=== PATIENT | male | born 1980 | race African-American/Black ===

== ENCOUNTER 2019-01-02 08:50 | Emergency (ER) | payer SELFPAY ==
[2019-01-02 08:53] VITALS: BP 166/90; PULSE 84; RESP 18; TEMP 36.4; O2SAT 99; BMI 33.9
--- NOTE | 2019-01-02 09:06 | ED.VIS.GEN ---
History of Present Illness Chief Complaint: Headache Informant: Patient Onset: Days Narrative: Patient presents to the ED with concern for headache for the last several days. He is also been experiencing bilateral arm cramping and paresthesias over this last week. 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 He has been taking ibuprofen for this arm cramping, however became concerned with the paresthesias. Nothing makes it better or worse. It does wake him up in the middle the night. Denies any chest pain or shortness of breath. His headache is intermittent and feels like a throbbing sensation. He has taken ibuprofen and a nasal spray with some relief of the headache. He states 3 days ago, he did run out of his hypertensive medication. He has an appointment on January 11 to establish care with a new PCP. Past Medical History - Allergies and Home Meds Allergies/Adverse Reactions: Allergies No Known Allergies Allergy (Verified 01/02/19 08:52) Primary Care Physician: Care Physician,No Primary [Primary Care Provider] - Smoking Status: Never smoker Review of Systems General: Denies: Chills, Fever, Sweats Eyes: Denies: Visual changes - bilaterally, Diplopia ENT: Denies: Rhinorrhea, Sore throat Cardiovascular: Denies: Chest pain, Palpitations Respiratory: Denies: Dyspnea, Cough, Dyspnea on exertion Gastrointestinal: Denies: Abdominal pain, Nausea, Vomiting, Diarrhea, Melena, Hematochezia Genitourinary: Denies: Dysuria, Hematuria, Frequency Musculoskeletal: Reports: - - Arm pain. Denies: Back pain, Extremity Pain Skin: Denies: Rash, Wounds Neurological: Reports: Headache, Parasthesia. Denies: Weakness, Numbness Physical Exam Vital Signs/Narrative: Vital Signs Temp Pulse Resp BP Pulse Ox 01/02/19 08:53 97.5 F L 84 18 166/90 H 99 General: Well nourished, Well developed, No Acute Distress Head: Normocephalic, Atraumatic Eyes: Perrl, EOMI ENT: Moist mucous membranes, No rhinorrhea Neck: Supple, Nontender Cardiovascular: Regular rate, Regular rhythm, No murmurs Respiratory: No distress, CTA bilaterally, Chest nontender Abdomen: Soft, Nontender, Nondistended, Normal bowel sounds Back: Nontender, Normal Inspection Extremities: Nontender, No edema, - - No visible swelling of upper extremities. Full range of motion of upper and lower extremities. No erythema, edema, or ecchymosis of extremities. Normal strength of all extremities. Full sensation of all extremities. Skin: Normal color, No rash Neurological: Alert, Oriented x3, Cranial nerves II-XII grossly intact, Normal Strength, Normal Sensation, Normal DTR, Normal Gait, - - NIH 0 Psychological: Normal affect, Normal Mood Diagnostic/Tx/Re-eval - Medical Decision Making Patient presents to the ED with headache, upper extremity paresthesias, and feeling as though his upper extremities are cramping or swollen. Upon arrival, patient appears well and nontoxic. He did run out of his hydrochlorothiazide 3 days ago. Physical exam is fairly unremarkable. CBC and BMP are normal. Patient was educated on the potential etiology of his symptoms. I did refill his hydrochlorothiazide for the next 2 weeks as he does have a follow-up appointment with a new PCP on January 11. His symptoms could also be consistent with anxiety disorder. He was given a prescription for several Ativan tablets to take as needed. He was educated on signs/symptoms to return to the ED. He is provided discharge instructions. He was agreeable to plan. Disposition: Home stable Impression: Headache. Paresthesias. Potential anxiety. Hypertension. ED Disposition - Plan for ED Patient: Disposition: Psychiatric Hospital or Unit Diagnosis: Headache, Anxiety Instructions: HEADACHE, Unspecified, Paraesthesias Prescriptions: Lorazepam [Ativan] 1 mg PO DAILY PRN PRN #5 tab PRN Reason: Anxiety Prescription Printed Hydrochlorothiazide [Hctz] 25 mg PO DAILY #14 tab Prescription Printed Referrals: Care Physician,No Primary [Primary Care Provider] -
[2019-01-02 09:52] LABS: Absolute Lymphocyte Count 2.42 X10^3/ul (0.83-4.51); Absolute Neutrophil Count 3.9 X10^3/uL (2.0-7.7); Basophil# 0.02 X10^3/uL; Basophil% 0.3 % (0-1); Eosinophil# 0.15 X10^3/uL; Eosinophils% 2.2 % (0-5); Hematocrit 46.5 % (40-54); Hemoglobin 15.2 g/dl (13.0-16.5); Lymphocyte # 2.42 X10^3/ul (4.0); Mean Corp Hgb Conc 32.7 g/gl (32-36); Mean Corpuscular Hgb 27.2 pg (27.0-32.0); Mean Corpuscular Volume 83.2 fL (80-94); Mean Platelet Vol. 10.2 fl (6.2-12.0); Monocyte# 0.43 X10^3/uL; Monocyte% 6.2 % (0-10); Neutrophil # 3.89 X10^3/uL (2.7-7.7); Neutrophil % 56.2 % (47-70); Platelet Count 249 K/mm3 (150-450); RBC Distribution Width CV 14.5 % (11.6-14.6); RBC Distribution Width SD 44.5 fl (35.1-43.9); Red Blood Count 5.59 M/mm3 (4.6-6.2); White Blood Count 6.9 K/mm3 (4.4-11.0)
[2019-01-02 09:53] LABS: POSITIVE COUNT NO; POSITIVE DIFFERENTIAL NO; POSITIVE MORPHOLOGY NO
[2019-01-02 09:56] LABS: Anion Gap 3 (5-15); BUN 13 mg/dL (7-18); BUN/Creat Ratio 11.3 RATIO (10-20); Calcium,Total 9.1 mg/dL (8.5-10.1); Chloride 104 mmol/L (98-107); Creatinine, Serum 1.15 mg/dL (0.70-1.30); EST Glomerular Filtration Rate 75 mL/min (>60); Est Glom Filt Rate - Afr Amer 91 mL/min (>60); Estimated Creatinine Clearance 89.05 ml/min; Glucose 106 mg/dL (74-106); Potassium 3.8 mmol/L (3.5-5.1); Sodium Level 136 mmol/L (136-145)
--- NOTE | 2019-01-02 10:02 | ED.DCSUM_ITS ---
- ER Visit Summary Date of Service: 01/02/19 Chief Complaint: [Headache and pain and paresthesias to arms and legs] History of Present Illness: The patient is a 38 M [presents with symptoms that he has had for about a week. Patient states that he is been having headaches for about a week that come and go. Patient been using ibuprofen that seems to help resolve his symptoms. Patient states that especially at night he has been having pain radiating into both arms and paresthesias in both arms as well as his legs. Patient did start a new job 3 weeks ago. He does a lot of repetitive motions at work. Patient also states that he ran out of his blood pressure medicine 3 days ago and he believes he takes hydrochlorothiazide. She just wanted to get checked out make sure everything was okay. He does feel anxious at x1 symptoms are occurring.] Patient denies headache currently. Patient denies any nausea or vomiting associate with a headache or photophobia. Physical Examination: [HEENT-PERRLA, EOMI. Cranial nerves II through XII grossly intact. TMs clear. Mucous membranes moist. No adenopathy. Cardiovascular-regular rate and rhythm without murmur or ectopy Lungs-clear to auscultation, chest wall stable without crepitus or subcu emphysema Abdomen-normoactive bowel sounds, soft, nontender, no rebound or rigidity, no peritoneal signs. Neuro edzl-pfuyrf-ypku and heel fierro testing within normal limits, negative Romberg, negative for Extremities-intact ?4, normal range of motion, normal pulses, atraumatic] Test Results: [CBC with differential and basic metabolic panel were unremarkable.] Emergency Department Course and Treatment: [] Treatment Plan: [Patient will be given a prescription for naproxen and Ativan as needed. She has an appointment with his primary care physician next week. Patient to return if worsening headache, difficulty with balance or speech, weakness in extremities, or conditions worsen anyway.] Disposition: [Discharged home stable condition.] Impression: [Nephrology Hypertension Paresthesias Anxiety] This note was generated with [employer] software. It may contain incorrect words, spelling, and punctuation that were not noted in review of the chart prior to signing ED Disposition - Plan for ED Patient: Referrals: Care Physician,No Primary [Primary Care Provider] -
[2019-01-02 10:17] VITALS: BP 157/96; PULSE 80; RESP 16
== END 2019-01-02 10:19 ==
PROVIDERS: Emergency Medicine; Emergency Provider Physician Assistant
DX: R51 Headache (principal); I10 Essential (primary) hypertension; R20.2 Paresthesia of skin; F41.9 Anxiety disorder, unspecified
CPT/HCPCS: 80048; 85025; 99283; A4216

== ENCOUNTER 2021-01-13 08:11 | Emergency (ER) | payer SELFPAY ==
[2021-01-13 08:12] VITALS: BP 163/94; PULSE 77; RESP 16; TEMP 36.6; O2SAT 98; BMI 40.7
--- NOTE | 2021-01-13 08:29 | CT_ITS ---
HISTORY: headache. TECHNIQUE: Multiple axial images were obtained of the brain without intravenous contrast. A radiation dose optimization technique was used for this scan. # of images incl. paperwork: 248. COMPARISON: None. FINDINGS: BRAIN PARENCHYMA: No significant attenuation abnormality in the brain parenchyma. INTRACRANIAL HEMORRHAGE: No acute intracranial hemorrhage. CSF SPACES/MASS EFFECT: Cerebral ventricles, cortical sulci, and other extra-axial CSF spaces appropriate for age without significant midline shift or mass effect. ORBITS: Unremarkable. CALVARIUM: Intact. PARANASAL SINUSES/MASTOID AIR CELLS: Polypoid mucosal thickening in the maxillary and sphenoid sinuses. Fluid in the right mastoid air cells and middle ear cavity. CT/Brain/Head without Contrast IMPRESSION: No acute intracranial process identified. Paranasal sinus inflammatory disease. Right mastoid effusion or otomastoiditis. Individualized dose optimization techniques were used for this CT. at 0923 Reported and signed by: Karla Stark MD Electronically Signed: Karla Stark MD at 9:22 EDT Tel , Service support ,
[2021-01-13] MEDS: Ketorolac 30 MG/ML Syringe IM (08:49)
--- NOTE | 2021-01-13 09:47 | EX.ED.VIS.HA ---
HPI History of Present Illness Chief Complaint: Headache Narrative Narrative: Patient presenting for evaluation secondary to headache. Patient states that over the course the last 3 days he has been dealing with a generalized headache. Patient states that this came on somewhat rapidly but was not thunderclap severe. Patient states that he has been taking nusg-uqe-aahmecx remedies at home for this and has not been having any sort of relief. Patient states that it is mainly a frontal headache, not worse with position change and its not worse with exposure to light or sound. No fevers nausea or vomiting. No neck stiffness or skin rashes associated with this. Patient does not necessarily have a history of headaches. He denies any recent history of significant nasal congestion or sore throat or drainage. No cough. Review of systems otherwise negative. [facility] Medical History CPAP (continuous positive airway pressure) dependence GERD (gastroesophageal reflux disease) Hypertension Sleep apnea Home Medications amoxicillin-pot clavulanate [Augmentin] 1 tab PO Q12H #28 tab 01/13/21 [Rx Last Taken Unknown] hydrochlorothiazide 25 mg PO DAILY 01/13/21 [History Last Taken Unknown] hydrochlorothiazide 25 mg PO DAILY #30 tab 01/13/21 [Rx Last Taken Unknown] Allergy/AdvReac Type Severity Reaction Status Date / Time No Known Allergies Allergy Verified 01/13/21 08:28 Social History Smoking Status: Never smoker [facility] ED Constitutional Constitutional ED: Denies chills, fever(s), sweats or weight loss Eyes Eyes: Denies blurry vision, change in vision, diplopia or photophobia ENT ENT ED: Denies ear pain, neck pain, rhinorrhea or sore throat Cardiovascular Cardiovascular: Denies chest pain Respiratory/Chest Respiratory/Chest: Denies cough or dyspnea Gastrointestinal Gastrointestinal: Denies abdominal pain, nausea or vomiting Musculoskeletal Musculoskeletal: Denies arthralgias, myalgias or neck pain Integumentary Reports other Details: No petechia ; Denies rash Neurologic Neurologic: Reports headache(s); Denies paresthesias or weakness Psychiatric Psychiatric: Reports other Details: No history of IV drug abuse ; Denies depression Hematologic/Lymphatic Hematologic/Lymphatic: Denies easy bleeding or easy bruising Allergic/Immunologic Allergic/Immunologic ED: Reports other Details: No immunosuppression EXAM Physical Exam Const Vital Signs: 01/13/21 08:12 Temperature 97.8 F Temperature Source Temporal Pulse Rate 77 Respiratory Rate 16 Blood Pressure 163/94 H Blood Pressure Mean 117 Pulse Ox 98 Oxygen Delivery Method Room Air Positive well nourished and well developed General Appearance ED: well developed and NAD HEENT Reports normocephalic HEENT Narrative: No mastoid tenderness atraumatic; Negative for temporal artery tenderness or vesicular rash Face and Sinus: Negative for sinus tenderness Eyes PERRL and EOMs intact bilaterally Eyes Narrative: Funduscopy was limited by miosis Direct Ophthalmoscopy: No papilledema and No retinal abnormality Neck no lymphadenopathy, supple and no meningeal signs Resp normal respiratory effort and clear to auscultation bilaterally Cardio regular rate, regular rhythm, no murmurs and peripheral pulses 2+ throughout GI non-tender and non-distended Palpation: soft Extremity normal to inspection and full ROM Neuro oriented x3, CN's II-XII intact bilaterally and no sensory deficits noted Sensorium / Orientation: awake and alert Meningeal Signs: no meningeal signs Speech: speech normal Motor Exam: strength 5/5 throughout Psych mental status grossly normal Skin General Skin Exam: Negative for petechiae Lesions: no lesions Rashes: no rashes MDM MDM MDM Narrative Medical decision making narrative: Patient presenting secondary to a headache. I did perform CT imaging on the patient which was negative for intracranial process it does show sinus disease and a questionable presentation of mastoiditis I reevaluated the patient after Toradol was administered he had symptomatic improvement he does not have any mastoid tenderness I do not think that this is a presentation of mastoiditis. Patient likely has an element of sinusitis will be placed on a course of Augmentin he was recommended nasal rinses. Patient was discharged in stable condition. Radiography Diagnostic Testing: Radiology Impression Brain CT 01/13/21 08:29 IMPRESSION: No acute intracranial process identified. Paranasal sinus inflammatory disease. Right mastoid effusion or otomastoiditis. Individualized dose optimization techniques were used for this CT. at 0923 Reported and signed by: Karla Stark MD Electronically Signed: Karla Stark MD at 9:22 EDT Tel , Service support , Discharge Plan Triage Chief Complaint: Headache ED Provider: Roberto Godfrey Dx/Rx/DC Orders Clinical Impression: Sinusitis Instructions: ED Sinusitis (Antibiotic Treatment) Prescriptions: New amoxicillin-pot clavulanate [Augmentin] 875-125 mg tablet 1 tab PO Q12H Qty: 28 RF: 0 hydrochlorothiazide 25 mg tablet 25 mg PO DAILY Qty: 30 RF: 0 No Action hydrochlorothiazide 25 mg tablet 25 mg PO DAILY RF: 0 Primary Care Provider: Care Physician,No Primary Referrals: Care Physician,No Primary [Primary Care Provider] - Activity Restrictions/Additional Instructions: Follow-up with your primary care physician as scheduled Disposition Disposition: Home, Self Care
== END 2021-01-13 10:01 | disposition home or self-care (01) ==
PROVIDERS: Emergency Provider Emergency Medicine
DX: J32.9 Chronic sinusitis, unspecified (principal); Z79.899 Other long term (current) drug therapy
CPT/HCPCS: 70450; 96372; 99282

== ENCOUNTER 2021-01-20 10:29 | Emergency (ER) | payer SELFPAY ==
[2021-01-20 10:30] VITALS: BP 154/109; PULSE 91; RESP 14; TEMP 35.9; O2SAT 99; BMI 38.0
--- NOTE | 2021-01-20 10:48 | EX.ED.VIS.HA ---
HPI History of Present Illness Chief Complaint: Headache Informant: patient Onset/Context/Timing Onset: Yesterday Context: Gradual Timing: Continuous Quality -Headache: Positive for Throbbing Location: left frontal and retroorbital Current Severity: Moderate Maximum Severity: Moderate Worsened by: light Relieved by: nothing Associated Symptoms/Injury Associated Symptoms: Positive for Blurred Vision and Photophobia; Negative for Fever, Nausea, Vomiting, Sore Throat, Sinus Pressure, Numbness, Tingling, Preceding Aura and Visual Loss Injury - MICHAELS: Negative for Direct Trauma and Fall Narrative Narrative: Patient presents with a headache that started gradually yesterday and is worse today, he has some photophobia and blurry vision with it, left frontal with some retro-orbital component. He was here for a headache 1 week ago, headaches are unusual for him so he had a CT scan that showed some paranasal sinus inflammation and possible right mastoid involvement, for which he was prescribed Augmentin x7 days and given an injection of Toradol. He states the headache went away, and was gone until yesterday. He is describing this headache differently, with photophobia and blurry vision which he did not describe for the last headache. He has had no symptoms of a URI including nasal congestion, runny nose, fevers, ear symptoms. [facility] Medical History CPAP (continuous positive airway pressure) dependence GERD (gastroesophageal reflux disease) Hypertension Sleep apnea Home Medications amoxicillin-pot clavulanate [Augmentin] 1 tab PO Q12H #28 tab 01/13/21 [Rx Last Taken Unknown] hydrochlorothiazide 25 mg PO DAILY 01/13/21 [History Last Taken Unknown] metoclopramide HCl 10 mg PO Q6H PRN PRN #20 tab 01/20/21 [Rx Last Taken Unknown] Allergy/AdvReac Type Severity Reaction Status Date / Time No Known Allergies Allergy Verified 01/20/21 10:30 Social History Smoking Status: Never smoker ROS ROS ED Constitutional Constitutional ED: Denies chills or fever(s) Eyes Eyes: Reports blurry vision and photophobia; Denies diplopia ENT ENT ED: Denies dental pain, ear pain, epistaxis, loss taste/smell, nasal congestion, sore throat, throat swelling or tinnitus Cardiovascular Cardiovascular: Denies chest pain or palpitations Respiratory/Chest Respiratory/Chest: Denies cough or dyspnea Gastrointestinal Gastrointestinal: Denies abdominal pain, diarrhea, nausea or vomiting Genitourinary Genitourinary ED: Denies dysuria or urinary frequency Musculoskeletal Musculoskeletal: Denies back pain or myalgias Integumentary Denies abscess or rash Neurologic Neurologic: Reports headache(s); Denies paresthesias or weakness EXAM Physical Exam Const Vital Signs: 01/20/21 10:30 Temperature 96.7 F L Temperature Source Temporal Pulse Rate 91 Respiratory Rate 14 Blood Pressure 154/109 H Blood Pressure Mean 124 Pulse Ox 99 Oxygen Delivery Method Room Air HEENT Reports normocephalic, TM's clear, moist mucous membranes and moist oral mucous membranes atraumatic Face and Sinus: sinuses nontender External Ear: external ears normal, mastoids normal and no preauricular adenopathy Tympanic Membrane ED: Yes TM's clear Throat: posterior oropharynx normal, tonsils normal and uvula midline Eyes PERRL, EOMs intact bilaterally and conjunctivae normal Eyes Narrative: photophobia Neck no lymphadenopathy, supple and no meningeal signs Resp normal respiratory effort and clear to auscultation bilaterally Extremity normal to inspection and full ROM Neuro oriented x3 and CN's II-XII intact bilaterally Sensorium / Orientation: awake and alert Speech: speech normal Gait (Neuro): normal gait Motor Exam: strength 5/5 throughout Psych mental status grossly normal Skin Lesions: no lesions Rashes: no rashes MDM MDM MDM Narrative Medical decision making narrative: Patient treated with IM Toradol and a dose of oral Reglan; I do not think he needs any more antibiotics at this time given the history and prior imaging. He is feeling better and wants to go home and rest. Given a prescription for Reglan to use as needed and advised to follow-up if they persist. He is comfortable with that plan and will finish his antibiotics. Discharge Plan Triage Chief Complaint: Headache ED Provider: Hal Horn Dx/Rx/DC Orders Clinical Impression: Headache, migraine Instructions: ED, Migraine (Classical) Prescriptions: New metoclopramide HCl [metoclopramide HCl] 10 MG tablet 10 mg PO Q6H PRN PRN (Reason: Headache or nausea) Qty: 20 RF: 0 No Action hydrochlorothiazide 25 mg tablet 25 mg PO DAILY RF: 0 amoxicillin-pot clavulanate [Augmentin] 875-125 mg tablet 1 tab PO Q12H Qty: 28 RF: 0 Primary Care Provider: Care Physician,No Primary Referrals: Care Physician,No Primary [Primary Care Provider] - Doctor,Your [STAFF PHYSICIAN] - As Needed Disposition Disposition: Home, Self Care
[2021-01-20] MEDS: Ketorolac 60 MG/2 ML Vial IM (10:51)
[2021-01-20] MEDS: Metoclopramide 10 MG/10 ML UDC PO (10:53)
[2021-01-20 12:43] VITALS: BP 124/93; PULSE 76; RESP 15; O2SAT 98
== END 2021-01-20 12:43 | disposition home or self-care (01) ==
PROVIDERS: Emergency Provider Emergency Medicine
DX: G43.909 Migraine, unspecified, not intractable, without status migrainosus (principal)
CPT/HCPCS: 96372; 99283

== ENCOUNTER → 2023-08-08 | Outpatient (CLI) | payer MEDICAID, SELFPAY ==
[2023-08-08 12:21] LABS: Absolute Lymphocyte Count 2.87 X10^3/uL (0.83-4.51); Absolute Neutrophil Count 5.6 X10^3/uL (2.0-7.7); Basophil# 0.04 X10^3/uL; Basophil% 0.4 % (0-1); Eosinophil# 0.08 X10^3/uL; Eosinophils% 0.9 % (0-5); Hematocrit 46.6 % (40-54); Hemoglobin 14.9 g/dL (13.0-16.5); Lymphocyte # 2.87 X10^3/ul (0.83-4.51); Lymphocyte % 30.8 % (19-41); Mean Corpuscular Hgb 26.7 pg (27.0-32.0); Mean Corpuscular Volume 83.4 fL (80-94); Mean Platelet Vol. 9.9 fl (6.2-12.0); Monocyte# 0.68 X10^3/uL; Monocyte% 7.3 % (0-10); NRBC Flagged by Analyzer 0 % (0-5); Neutrophil # 5.61 X10^3/uL (2.7-7.7); Neutrophil % 60.1 % (47-70); Platelet Count 289 K/mm3 (150-450); RBC Distribution Width CV 13.5 % (11.6-14.6); RBC Distribution Width SD 41.1 fl (35.1-43.9); Red Blood Count 5.59 M/mm3 (4.6-6.2); White Blood Count 9.3 K/mm3 (4.4-11.0)
--- NOTE | 2023-08-08 12:22 | RAD_ITS ---
HISTORY: PAIN IN RIGHT ANKLE. TECHNIQUE: XR Ankle Min 3 Views. COMPARISON: None. FINDINGS: BONES : No acute fracture identified. Mild concavity in the mid talar dome, possible old osteochondral injury versus anatomic variant. JOINTS: No dislocation. Joint spaces maintained. SOFT TISSUES: Mild soft tissue swelling. RAD/Ankle min 3 Views IMPRESSION: No acute fracture or dislocation identified in the right ankle. Electronically Signed: Karla Stark MD at 10:48 EST ,
--- OUTSIDE RECORDS SUMMARY | 2023-08-08 12:30 | XMS RPT_ITS | CCD ---
Author Name Unknown Address [address] [place] [address] Organization [facility] Care Team Providers Care Digital Media Representative Name Role Phone TANMAY FIERRO (PHOTOGRAPHER LITHOGRAPHIC) Unavailable Unavailabl e PHYSICIAN, NONE Primary Care Physician Unavailab lidia RODRIGUEZ MD, COY Ivan Attending Unavailable PHYSICIAN, NONE Primary Care Unavailable Allergies Allergy Classification Reported Allergen(s) Allergy Type Date of Onset Reaction(s) Facility (1 source) lisinopril; Translations: [LISINOPRIL] Drug Allergy 4 [facility] Repository (1 source) omeprazole; Translations: [OMEPRAZOLE] Drug Allergy 4 [facility] Repository (1 source) OTHER; Translations: [OTHER] Propensity to adverse reactions (disorder) 9 [facility] Repository Medications Current Medications Medication Drug Class(es) Dates Sig (Normalized) Sig (Original) acetaminophen 325 mg / HYDROcodone bitartrate 5 mg oral tablet (1 source) Opioid Agonist Start: 09-12-2013 take 1 tablet by mouth every six hours [place] 325- 5 mg oral tablet Dose = 1 tab(s), Oral, q6h, # 20 tab(s), 0 Refill(s) Start Date: 09/12/13 Status: Ordered cyclobenzaprine hydrochloride 10 mg oral tablet (1 source) Muscle Relaxant Start: 04-02-2023 End: 04-07-2023 cyclobenzaprine 10 mg oral tablet Dose : 10 mg = 1 tab(s), Oral, TID, X 5 day(s), # 15 tab(s), 0 Refill(s), 04/07/23 1:47:00 PM EDT Start Date: 04/02/23 Stop Date: 04/07/23 Status: Ordered predniSONE 20 mg oral tablet (1 source) Start: 04-02-2023 End: 04-07-2023 predniSONE 20 mg oral tablet Dose : 60 mg = 3 tab(s), Oral, qDay, X 5 day(s), # 15 tab(s), 0 Refill(s), 04/07/23 1:47:00 PM EDT Start Date: 04/02/23 Stop Date: 04/07/23 Status: Ordered Completed/Discontinued Medications Medication Drug Class(es) Dates Sig (Normalized) Sig (Original) amoxicillin 875 mg oral tablet (1 source) Penicillin-class Antibacterial Start: 09-12-2013 End: 09-22-2013 Amoxil 875 mg oral tablet (NF) Dose : 875 mg = 1 tab(s), Oral, q12h, # 20 tab(s), 0 Refill(s) Start Date: 09/12/13 Stop Date: 09/22/13 Status: Ordered Problems Problem Classification Problem Date Documented Da te Episodic/Chronic Other lower respiratory disease (1 source) Snoring; Translations: [Snoring] Onset: 11-09-2017 Episodic Unclassified (1 source) None (qualifier value) 09-12-2013 Results Test Name Value Interpretation Reference Range Facil ity Vital Signs Date Time Vital Sign Value Performing Clinician Jose soriano 04-02-2023 11:48-0400 Diastolic Blood Pressure Non-Invasive 89 1 COY RODRIGUEZ MD [facility] 04-02-2023 11:48-0400 Heart rate 83 /min COY RODRIGUEZ MD [facility] 04-02-2023 11:48-0400 Respiratory rate 18 /min COY RODRIGUEZ MD [facility] 04-02-2023 11:48-0400 Systolic Blood Pressure Non-Invasive 138 1 COY RODRIGUEZ MD [facility] 04-02-2023 10:54-0400 Body temperature 98.6 [degF] COY RODRIGUEZ MD [facility] 04-02-2023 10:54-0400 Body weight 102.3 kg COY RODRIGUEZ MD [facility] 04-02-2023 10:54-0400 Diastolic Blood Pressure Non-Invasive 92 1 COY RODRIGUEZ MD [facility] 04-02-2023 10:54-0400 Heart rate 95 /min CYO RODRIGUEZ MD [facility] 04-02-2023 10:54-0400 Respiratory rate 18 /min COY RODRIGUEZ MD [facility] 04-02-2023 10:54-0400 Systolic Blood Pressure Non-Invasive 141 1 COY RODRIGUEZ MD [facility] Encounters Encounter Date Encounter Type Care Provider Facility Start: 04-02-2023 End: 04-02-2023 Emergency department patient visit COY RODRIGUEZ MD Facility:B Start: 04-02-2023 End: 04-02-2023 Emergency department patient visit COY RODRIGUEZ MD [facility] Start: 11-09-2017 End: 11-09-2017 Ambulatory TANMAY ([facility] Procedures Date Procedure Procedure Detail Performing Clinician Sinus (morphologic abnormality) COY RODRIGUEZ MD Payers Date Payer Category Payer Self-pay 1980 Unknown [id number] Social History Date Type Detail Facility Tobacco smoking status Occasiona l tobacco smoker (finding) [facility] Sex Assigned At Sex [facility] Functional Status Date Assessment Result Facility 04-02-2023 Functional Status Standard Safet y ID band on, Call device within reach, Bed in low position, Wheels locked, Upper/Half-Length side-rails up, Bedside Cart Locked, Safety level maintained [facility] Mental Status Date Assessment Result Facility 04-02-2023 Mental Status Orientation Oriented x 4 [facility] Clinical Notes 09-08-2020 to 04-02-2023 Note Date & Type Note Facility 04-02-2023 Hospital Discharge instructions Patient Education 04/02/2023 13:46:19 Paraesthesias Paraesthesias Paraesthesia is a burning or prickling sensation that is sometimes felt in the hands, arms, legs or feet. It can also occur in other parts of the body. It can also feel like tingling or numbness, skin crawling, or itching. The feeling is not comfortable, but it is not painful. (The pins and needles feeling that happens when a foot or hand falls asleep is a temporary paraesthesia.) Paraesthesias that last or come and go may be caused by medical issues that need to be treated. These include stroke, a bulging disk pressing on a nerve, a trapped nerve, vitamin deficiencies, uncontrolled diabetes, alcohol abuse, or even certain medicines. Tests are often done. These tests may include blood tests, X-ray, CT (computerized tomography) scan, nerve conduction studies (NCS), or a muscle test (electromyography). Depending on the cause, treatment may include physical therapy. Home care Tell your healthcare provider about all medicines you take. This includes prescription and dpex-xbi-dlzpbvj medicines, vitamins, and herbs. Ask if any of the medicines may be causing your problems. Don't make any changes to prescription medicines without talking to your healthcare provider first. You may be prescribed medicines to help relieve the tingling feeling or for pain. Take all medicines as directed. A numb hand or foot may be more prone to injury. To help protect it: oAlways use oven mitts. oTest water with an unaffected hand or foot. oUse caution when trimming nails. File sharp areas. oWear shoes that fit well to avoid pressure points, blisters, and ulcers. oInspect your hands and feet carefully (including the soles of your feet and between your toes) daily. If you see red areas, sores, or other problems, tell your healthcare provider. Follow-up care Follow up with your doctor, or as advised. You may need further testing or evaluation. When to seek medical advice Call your healthcare provider right away if any of the following occur: Numbness or weakness of the face, one arm, or one leg Slurred speech, confusion, trouble speaking, walking, or seeing Severe headache, fainting spell, dizziness, or seizure Chest, arm, neck, or upper back pain Loss of bladder or bowel control Open wound with redness, swelling, or pus [id number] [employer]. [address] [place] [address]. All rights reserved. This information is not intended as a substitute for professional medical care. Always follow your healthcare professional's instructions. 04/02/2023 13:46:06 Myalgias Myalgias Myalgias are another word for muscle aches and soreness. This is a symptom, not a disease. Myalgias can have many causes. A cold, the flu, or an acute infection can cause them. So can any illness with a high fever. They may happen after exertion (such as heavy exercise) or injury (such as an accident or fall). Some medicines (such as statins and certain antidepressants) can cause myalgias. They can also be a symptom of chronic or ongoing medical problems (such as lupus, chronic fatigue, or hypothyroidism). With these illnesses, other serious symptoms often occur in addition to muscle pain and soreness. Myalgias most often go away on their own. If they don't go away, come back, or are severe, testing may be needed to help find the cause. Home care Rest until you feel better. Follow instructions that you were given for how to care for yourself. This may depend on the cause of your myalgias. If myalgia is thought to be due to a medicine, be sure to talk to the doctor that prescribed the medicine about the best course of action. To control pain, take prescription or oibi-rhe-cxffour medicines as directed. Unless told not to, you can try acetaminophen or ibuprofen. Follow-up care Follow up with your healthcare provider or as advised. If your symptoms do not go away in a few days or if they come back, follow up with your healthcare provider for an exam and testing. When to see medical advice Call your healthcare provider for any of the following: Fever of 100.4 F (38 C) or higher, or as directed by your healthcare provider Pain that gets worse and not better, or that goes away and comes back New joint pains New rash Severe headache, neck pain, drowsiness, or confusion [id number] [employer]. [address] [place] [address], [place] [address]. All rights reserved. This information is not intended as a substitute for professional medical care. Always follow your healthcare professional's instructions. Follow Up Care 04/02/2023 10:41:16 With:DAVE TELLEZ DO Address: [address] [place] [phone] When:2-4 days Comments:Make an appointment in 2 to 4 days with your physician. Return if you are worse in any way. [facility] 04-02-2023 Emergency department Discharge summary Discharge Instructions Thank you for allowing [place] to assist you with your healthcare needs. The following is important discharge information regarding your hospital visit. Diagnosis from Today's Visit Chest pain What to Do Next Instructions from Your Care Team No qualifying data available. Post Acute Orders No qualifying data available. You Need to Schedule the Following Appointments Follow Up with DAVE TELLEZ DO When Within 2-4 days Why: Make an appointment in 2 to 4 days with your physician. Return if you are worse in any way. Where: [address] [place] [phone] Allergies No Known Medication Allergies Medications Please ask your primary doctor or pharmacist before taking any other medication not listed, including over the counter drugs, herbal medications, vitamins and or supplements as they may interact with your home medications. What How Much When Instructions Last Dose New cyclobenzaprine (cyclobenzaprine 10 mg oral tablet) 1 tab(s) by mouth Three (3) times a day Duration: 5 Days Printed Prescription New predniSONE (predniSONE 20 mg oral tablet) 3 tab(s) by mouth Once a day Duration: 5 Days Printed Prescription Unchanged acetaminophen-HYDROcodone ([place] 325- 5 mg oral tablet) 1 tab(s) by mouth Every 6 hours Unchanged amoxicillin (Amoxil 875 mg oral tablet (NF)) 1 tab(s) by mouth Every 12 hours Duration: 10 Days Please take this list to your next doctor s visit. Bring all medications you take, including over the counter medications, herbals and other supplements with you to your doctor s visit. Patients and families are reminded to discard old lists and to update any records with all medication providers or retail pharmacies. Education Materials Paraesthesias Paraesthesia is a burning or prickling sensation that is sometimes felt in the hands, arms, legs or feet. It can also occur in other parts of the body. It can also feel like tingling or numbness, skin crawling, or itching. The feeling is not comfortable, but it is not painful. (The pins and needles feeling that happens when a foot or hand falls asleep is a temporary paraesthesia.) Paraesthesias that last or come and go may be caused by medical issues that need to be treated. These include stroke, a bulging disk pressing on a nerve, a trapped nerve, vitamin deficiencies, uncontrolled diabetes, alcohol abuse, or even certain medicines. Tests are often done. These tests may include blood tests, X-ray, CT (computerized tomography) scan, nerve conduction studies (NCS), or a muscle test (electromyography). Depending on the cause, treatment may include physical therapy. Home care Tell your healthcare provider about all medicines you take. This includes prescription and rdjo-rrx-wkvisgj medicines, vitamins, and herbs. Ask if any of the medicines may be causing your problems. Don't make any changes to prescription medicines without talking to your healthcare provider first. You may be prescribed medicines to help relieve the tingling feeling or for pain. Take all medicines as directed. A numb hand or foot may be more prone to injury. To help protect it: oAlways use oven mitts. oTest water with an unaffected hand or foot. oUse caution when trimming nails. File sharp areas. oWear shoes that fit well to avoid pressure points, blisters, and ulcers. oInspect your hands and feet carefully (including the soles of your feet and between your toes) daily. If you see red areas, sores, or other problems, tell your healthcare provider. Follow-up care Follow up with your doctor, or as advised. You may need further testing or evaluation. When to seek medical advice Call your healthcare provider right away if any of the following occur: Numbness or weakness of the face, one arm, or one leg Slurred speech, confusion, trouble speaking, walking, or seeing Severe headache, fainting spell, dizziness, or seizure Chest, arm, neck, or upper back pain Loss of bladder or bowel control Open wound with redness, swelling, or pus [employer]. [address] [place] [address]. All rights reserved. This information is not intended as a substitute for professional medical care. Always follow your healthcare professional's instructions. Myalgias Myalgias are another word for muscle aches and soreness. This is a symptom, not a disease. Myalgias can have many causes. A cold, the flu, or an acute infection can cause them. So can any illness with a high fever. They may happen after exertion (such as heavy exercise) or injury (such as an accident or fall). Some medicines (such as statins and certain antidepressants) can cause myalgias. They can also be a symptom of chronic or ongoing medical problems (such as lupus, chronic fatigue, or hypothyroidism). With these illnesses, other serious symptoms often occur in addition to muscle pain and soreness. Myalgias most often go away on their own. If they don't go away, come back, or are severe, testing may be needed to help find the cause. Home care Rest until you feel better. Follow instructions that you were given for how to care for yourself. This may depend on the cause of your myalgias. If myalgia is thought to be due to a medicine, be sure to talk to the doctor that prescribed the medicine about the best course of action. To control pain, take prescription or efud-wdo-qmwbraj medicines as directed. Unless told not to, you can try acetaminophen or ibuprofen. Follow-up care Follow up with your healthcare provider or as advised. If your symptoms do not go away in a few days or if they come back, follow up with your healthcare provider for an exam and testing. When to see medical advice Call your healthcare provider for any of the following: Fever of 100.4 F (38 C) or higher, or as directed by your healthcare provider Pain that gets worse and not better, or that goes away and comes back New joint pains New rash Severe headache, neck pain, drowsiness, or confusion [employer]. [address] [place] [address]. All rights reserved. This information is not intended as a substitute for professional medical care. Always follow your healthcare professional's instructions. Additional Information VACCINATE! IT SAVES LIVES! Members of the community who have not yet received the COVID-19 vaccine and would like to receive it can visit one of [facility] vaccine clinics. There are many vaccine clinic locations within the [facility]. For locations and available times, please visit www.gettheshot.coronavirus.[place]. gov/. It is important to note that some COVID mobile vaccine clinics are held outdoors and may be canceled in rainy or stormy conditions. To learn more about pediatric vaccinations (ages 5-11), we invite you to visit the [employer] [facility] webpage. https://[email or web address]/p [email or web address]-Uxiiv-Inrskbxzvqo-Freq qwrehu-Rbvdy-Clhdkwxog.html To learn more about the COVID-19 vaccine, we invite you to visit the CDC website for a list of frequently asked questions. https://www.cdc.gov/coronavirus/ 2019-ncov/vaccines/faq.html [facility] Patient Portal Access Instructions: Stay connected with your healthcare team and access your personal medical information anytime with the [employer] Patient Portal. If you would like a full copy of your medical records please contact the [facility] Medical Records Department Friday through Friday between 8a.m. and 4:30p.m. Please follow the directions below to access the portal: 1.Access the email account you provided upon registration to the hospital.2.Look for an invitation email from [facility].3.Open the email and access the invitation link: Accept Invitation to [employer].Fill in the required carrasco to create your account. Sign into www.[facility] with your username and password that you created in the above steps to stay up to date. You can then view a summary of results, a summary of your visits, and the ability to download your summaries to your computer or send the information securely to a physician. Remember that your healthcare information is confidential, so carefully consider who you will allow to register on the [employer] Patient Portal for access to your information. You can also access the [employer] Patient Portal on the [employer]. Simply click on Health Records under Health Data and then click on the [employer] logo. HOW TO SAFELY DISPOSE OF PRESCRIPTION MEDICATIONS Please use one of the following methods to safely dispose of your unused medications. 1.Use a drug disposal kit: the drug disposal pouch allows you to safely discard your old and unused drugs. Ask your nurse to give you one when you are discharged.2.Visit a local take-back location: Many local pharmacies and police departments have programs that collect old and unwanted prescription drugs. Call your local pharmacy or go to http://GPal.PHARMAJET/2W1Pt5k to find one close to you.3.Make use of household items: Use cat litter or old coffee grounds to dispose medications if other options are not available. Mix your drugs with these household products, seal them in an airtight container and throw it into the garbage. Call [facility]: [phone] to be sure your drugs can be disposed of in this way. Some medicines may require a different approach.4.Never flush your medications down the toilet. IF YOU HAVE BEEN PRESCRIBED AN OPIOIDS FOR PAIN If you have been prescribed an opioid (such as hydrocodone, oxycodone or morphine), it is critical to understand the possible side effects and risks of opioid pain medications. Even when taken as directed, opioids can have several side effects including: Tolerance, meaning you might need to take more of a medication for the same pain relief. Nausea, vomiting and/or constipation. Sleepiness, dizziness, dry mouth, confusion, depression or itching. Physical dependence, meaning you have withdrawal symptoms when a medication is stopped ? this can develop within a few days. KNOW YOUR RESPONSIBILITIES It is important to know exactly how much and how often to take the opioid pain medications you are prescribed. Never take opioids in higher amounts or more often than prescribed. Do not combine opioids with alcohol or other drugs that cause drowsiness, such as benzodiazepines, also known as benzos, including diazepam and alprazolam, muscle relaxants or sleep aids. Never sell or share prescription opioids. This is illegal. Store opioids in a secure place and out of reach of others (including children, family, friends and visitors). The last page(s) of this document has been signed and retained as a CHART COPY Signatures Patient Education Materials Paraesthesias Myalgias Medication Leaflets My discharge plan and instructions have been reviewed and explained to me and I,SARAI CHOE JR understand my current condition and have read and understand these discharge instructions. I have received a written copy of the plan/instructions. If I have questions, I am aware that I should contact my doctor. Patient/Bulkhead Carpenter Signature: Date/Time: Relationship to Patient: Witness Name/Signature: Date/Time: [facility] 04-02-2023 Note ORIGINAL HISTORY: Chest pain COMPARISON: No FINDINGS: The lungs are clear. The pulmonary vasculature is unremarkable in appearance. IMPRESSION: Clear lungs. Interpreted by: Brian Lundberg MD Preliminary Report By: Brian Lundberg MD Electronically signed By Brian Lundberg MD Dictated Date: 04/02/2023 12:25:31 PM Prelim Date: 04/02/2023 12:25:53 PM Sign Date: 04/02/2023 12:25:53 PM Ordering Provider: COY RODRIGUEZ [facility] 04-02-2023 Note Sinus rhythm Probable left atrial enlargement Electronic Signature: COY RODRIGUEZ MD 04/02/2023 11:07:03 [facility] 12-08-2020 Note HNO ID: [id number] Author: Fatuma Pedraza LPN Service: ? Author Type: LICENSED NURSE Type: Progress Notes Filed: 12/08/2020 3:27 PM Note Text: POPULATION HEALTH NAVIGATION OUTREACH Action/FYI htn Contact made with patient or family member? YES Pt identified by name and : YES Outreach Outcome/Action Spoke to patient or caregiver: Patient declined Reason for Outreach Care Gap or Scheduling/Wellness visits Payer: No coverage found. Care Gap Reviewed:: Follow-up appointment Reminder: Reminder note to check Health Maintenance for items below Health Maintenance items due: COVID-19 VACCINE(1) Never done HEPATITIS C SCREENING Never done HIV SCREENING Never done BP CONTROLLED (<130/80) Never done DEPRESSION SCREENING due on 11/03/2018 ANNUAL PCP TEAM CHRONIC DISEASE VISIT due on 12/05/2018 LIPID SCREEN due on 02/17/2019 Advanced Directives Completed: Have you ever planned for future healthcare decisions with a power of criminal attorney, living will, or advance directives? Yes. Have you shared those records with your doctor? No Referrals: N/A Message Sent to Practice: yes Navigation Signature: Fatuma Pedraza LPN December 08, 2020 3:22 PM [facility] 12-08-2020 Note Patient Outreach (ESTHER MPWS) SARAI CHOE JR ([id number]) 1980 M Date Time Provider Department 12/08/20 FATUMA PEDRAZA During your visit today, we recorded the following information about you: Fatuma Pedraza LPN 12/08/2020 3:27 PM Signed POPULATION HEALTH NAVIGATION OUTREACH Action/FYI htn Contact made with patient or family member? YES Pt identified by name and : YES Outreach Outcome/Action Spoke to patient or caregiver: Patient declined Reason for Outreach Care Gap or Scheduling/Wellness visits Payer: No coverage found. Care Gap Reviewed:: Follow-up appointment Reminder: Reminder note to check Health Maintenance for items below Health Maintenance items due: COVID-19 VACCINE(1) Never done HEPATITIS C SCREENING Never done HIV SCREENING Never done BP CONTROLLED (<130/80) Never done DEPRESSION SCREENING due on 11/03/2018 ANNUAL PCP TEAM CHRONIC DISEASE VISIT due on 12/05/2018 LIPID SCREEN due on 02/17/2019 Advanced Directives Completed: Have you ever planned for future healthcare decisions with a power of criminal attorney, living will, or advance directives? Yes. Have you shared those records with your doctor? No Referrals: N/A Message Sent to Practice: yes Navigation Signature: Fatuma Pedraza LPN December 08, 2020 3:22 PM Allergies As of Date: 12/08/2020 Noted Allergy Reaction environmental [Other] 10/31/2008 Comments: Seasonal allergies LISINOPRIL 02/17/2014 14 - Other: See Comments Comments: Throat swelling OMEPRAZOLE 03/17/2014 8 - GI Upset Date Reviewed: 02/26/2018 Reviewed by: Mirta ([facility]) Candelario - Fully Assessed Reason for Visit: Appointment [186] Prescriptions as of 12/08/2020 Sig: HYDROCHLOROTHIAZIDE 25 MG TAB* Take 1 tablet by mouth once d* ESOMEPRAZOLE MAGNESIUM 40 MG * Take 1 capsule by mouth once * SUMATRIPTAN 50 MG TABLET TAKE ONE TABLET BY MOUTH AT O* PROPRANOLOL 80 MG TABLET Take 1 tablet by mouth once d* CPAP Please increase pressures to * HYDROXYZINE PAMOATE 50 MG CAP* Take 1 capsule by mouth three* CPAP 1 Device by MISCELLANEOUS rou* FLUTICASONE PROPIONATE 50 MCG* Use 1 [place] in each nostril o* CPAP Initiate CPAP @ 10 cm of grecia* Patient not taking: Reported on 12/05/2017 SUMATRIPTAN 50 MG TABLET Take one at start of headache* TRIAMCINOLONE ACETONIDE 0.1 %* Apply 1 application to affect* CETIRIZINE 10 MG TABLET take 1 tablet by mouth once d* Problem List As Of Date 12/08/2020 Noted Resolved 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, 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] 10/31/2008 DIAPHRAGMATIC HERNIA [K44.9] 12/28/2008 ESOPHAGEAL REFLUX [K21.9] 12/28/2008 Reflux Esophagitis [K21.00] 02/20/2009 Essential hypertension, benign [I10] 01/20/2014 Hyperlipidemia [E78.5] 03/17/2014 Migraine [G43.909] ELIZABETH (obstructive sleep apnea) [G47.33] 12/18/2017 Encounter Status:Closed by FATUMA PEDRAZA on 12/08/20 [facility] 11-14-2020 Note Patient Outreach (FA MPWS) SARAI CHOE JR ([id number]) 1980 M Date Time Provider Department 11/14/20 JOSE L HAM MA During your visit today, we recorded the following information about you: Joes L Jitendra Alfredo 11/14/2020 11:16 AM Signed POPULATION HEALTH NAVIGATION OUTREACH Action/FYI htn Contact made with patient or family member? NO Pt identified by name and : NO Outreach Outcome/Action Unable to reach patient: Left message Reason for Outreach Care Gap or Scheduling/Wellness visits Payer: No coverage found. Care Gap Reviewed:: Annual Wellness visit Follow-up appointment Controlling Blood Pressure Reminder: Reminder note to check Health Maintenance for items below Health Maintenance items due: HEPATITIS C SCREENING Never done HIV SCREENING Never done BP CONTROLLED (<130/80) Never done DEPRESSION SCREENING due on 11/03/2018 ANNUAL PCP TEAM CHRONIC DISEASE VISIT due on 12/05/2018 LIPID SCREEN due on 02/17/2019 Advanced Directives Completed: Have you ever planned for future healthcare decisions with a power of criminal attorney, living will, or advance directives? No. Please bring a copy to your next appointment or email to [email or web address] Referrals: N/A Message Sent to Practice: NO Navigation Signature: Jose L Ham Ma November 14, 2020 11:13 AM Allergies As of Date: 11/14/2020 Noted Allergy Reaction environmental [Other] 10/31/2008 Comments: Seasonal allergies LISINOPRIL 02/17/2014 14 - Other: See Comments Comments: Throat swelling OMEPRAZOLE 03/17/2014 8 - GI Upset Date Reviewed: 02/26/2018 Reviewed by: Mirta ([facility]) Candelario - Fully Assessed Reason for Visit: Appointment [186] Cmt: htn Prescriptions as of 11/14/2020 Sig: HYDROCHLOROTHIAZIDE 25 MG TAB* Take 1 tablet by mouth once d* ESOMEPRAZOLE MAGNESIUM 40 MG * Take 1 capsule by mouth once * SUMATRIPTAN 50 MG TABLET TAKE ONE TABLET BY MOUTH AT O* PROPRANOLOL 80 MG TABLET Take 1 tablet by mouth once d* CPAP Please increase pressures to * HYDROXYZINE PAMOATE 50 MG CAP* Take 1 capsule by mouth three* CPAP 1 Device by MISCELLANEOUS rou* FLUTICASONE PROPIONATE 50 MCG* Use 1 [place] in each nostril o* CPAP Initiate CPAP @ 10 cm of grecia* Patient not taking: Reported on 12/05/2017 SUMATRIPTAN 50 MG TABLET Take one at start of headache* TRIAMCINOLONE ACETONIDE 0.1 %* Apply 1 application to affect* CETIRIZINE 10 MG TABLET take 1 tablet by mouth once d* Problem List As Of Date 11/14/2020 Noted Resolved 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 Author Type: ? Type: Progress Notes Filed: 11/14/2020 11:16 AM Note Text: POPULATION HEALTH NAVIGATION OUTREACH Action/FYI htn Contact made with patient or family member? NO Pt identified by name and : NO Outreach Outcome/Action Unable to reach patient: Left message Reason for Outreach Care Gap or Scheduling/Wellness visits Payer: No coverage found. Care Gap Reviewed:: Annual Wellness visit Follow-up appointment Controlling Blood Pressure Reminder: Reminder note to check Health Maintenance for items below Health Maintenance items due: HEPATITIS C SCREENING Never done HIV SCREENING Never done BP CONTROLLED (<130/80) Never done DEPRESSION SCREENING due on 11/03/2018 ANNUAL PCP TEAM CHRONIC DISEASE VISIT due on 12/05/2018 LIPID SCREEN due on 02/17/2019 Advanced Directives Completed: Have you ever planned for future healthcare decisions with a power of criminal attorney, living will, or advance directives? No. Please bring a copy to your next appointment or email to Referrals: N/A Message Sent to Practice: NO Navigation Signature: Jose L Ham Ma November 14, 2020 11:13 AM [facility] 09-08-2020 Note HNO ID: [id number] Author: Svetlana Landa MA Service: ? 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 Pt identified by name and : YES Outreach Outcome/Action: Spoke to patient or caregiver: Patient scheduled in Primary Care If patient deferred or declined to schedule appointment, please indicate the reason(s): Other Svetlana Landa [facility] 09-08-2020 Note Patient Outreach (FA MPWS) SARAI CHOE JR ([id number]) 1980 M Date Time Provider Department 09/08/20 SVETLANA LANDA During your visit today, we recorded the following information about you: Svetlana Landa MA 09/08/2020 5:29 PM Signed Care Gap Reviewed: Follow-up appointment Phone call placed to patient. Pt identified by name and : YES Outreach Outcome/Action: Spoke to patient or caregiver: Patient scheduled in Primary Care If patient deferred or declined to schedule appointment, please indicate the reason(s): Other Svetlana Landa Allergies As of Date: 09/08/2020 Noted Allergy Reaction environmental [Other] 10/31/2008 Comments: Seasonal allergies LISINOPRIL 02/17/2014 14 - Other: See Comments Comments: Throat swelling OMEPRAZOLE 03/17/2014 8 - GI Upset Date Reviewed: 02/26/2018 Reviewed by: Mirta Palomino - Fully Assessed Reason for Visit: Appointment [186] Cmt: HTN Follow Up Prescriptions as of 09/08/2020 Sig: ESOMEPRAZOLE MAGNESIUM 40 MG * Take 1 capsule by mouth once * SUMATRIPTAN 50 MG TABLET TAKE ONE TABLET BY MOUTH AT O* PROPRANOLOL 80 MG TABLET Take 1 tablet by mouth once d* CPAP Please increase pressures to * HYDROXYZINE PAMOATE 50 MG CAP* Take 1 capsule by mouth three* HYDROCHLOROTHIAZIDE 25 MG TAB* take 1 tablet by mouth once d* CPAP 1 Device by MISCELLANEOUS rou* FLUTICASONE PROPIONATE 50 MCG* Use 1 [place] in each nostril o* CPAP Initiate CPAP @ 10 cm of grecia* Patient not taking: Reported on 12/05/2017 SUMATRIPTAN 50 MG TABLET Take one at start of headache* TRIAMCINOLONE ACETONIDE 0.1 %* Apply 1 application to affect* CETIRIZINE 10 MG TABLET take 1 tablet by mouth once d* Problem List As Of Date 09/08/2020 Noted Resolved 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, 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] 10/31/2008 DIAPHRAGMATIC HERNIA [K44.9] 12/28/2008 ESOPHAGEAL REFLUX [K21.9] 12/28/2008 Reflux Esophagitis [K21.00] 02/20/2009 Essential hypertension, benign [I10] 01/20/2014 Hyperlipidemia [E78.5] 03/17/2014 Migraine [G43.909] ELIZABETH (obstructive sleep apnea) [G47.33] 12/18/2017 Encounter Status:Closed by SVETLANA LANDA MA on 09/08/20 [facility] Evaluation + Plan note No data available for this section [facility] Summary Purpose Family History No Family History Records FoundNo Family History Records Found No data available for this section No Family History Records Found Advance Directives No Advanced Directives Records FoundNo Advanced Directives Records FoundNo Advanced Directives Records Found Additional Source Comments (unrecognized sect ion and content) No Status Records FoundNo Status Records FoundNo Status Records Found INFORMATION SOURCE (unrecogn ized section and content) DATE CREATED AUTHOR AUTHOR'S ORGANIZ ATION 07/29/2021 [facility] DATE CREATED AUTHOR AUTHOR'S ORGANIZ ATION 04/13/2023 [facility] ([place]) Patient Care team informatio n (unrecognized section and content) Care Team Personnel Name: PHYSICIAN, NONE Position: Physician Member Role: Primary Care Physician Name: KERWIN Horvath Position: ED RN Member Role: ED RN Name: COY RODRIGUEZ MD Position: ED Physician Member Role: ED Physician Address: Address: [facility] [address] [place] [address]- Care Team Related Persons Name: EVON ADAMS FOR RECORDS PERTAINING TO PATIENTS WHO ARE OR HAVE BEEN ENROLLED IN A CHEMICAL DEPENDENCY/SUBSTANCEABUSE PROGRAM, SOME INFORMATION MAY BE OMITTED. This clinical summary was aggregated from multiple sources. Caution should be exercised in using it in the provision of clinical care. This summary normalizes information from multiple sources, and as a consequence, information in this document may materially change the coding, format and clinical context of patient data. In addition, data may be omitted in some cases. CLINICAL DECISIONS SHOULD BE BASED ON THE PRIMARY CLINICAL RECORDS. [facility]. provides no warranty or guarantee of the accuracy or completeness of information in this document.
[2023-08-08 13:27] LABS: ALB/GLOB Ratio 1.1 RATIO (0.9-2.4); AST(SGOT) 32 U/L (15-37); Alanine Aminotransfer ALT/SGPT 63 U/L (16-61); Albumin, Serum 4.1 g/dL (3.2-5.0); Alkaline Phosphatase 84 U/L (45-117); Anion Gap 6 (5-15); BUN 16 mg/dL (7-18); BUN/Creat Ratio 12.2 RATIO (10-20); Chloride 109 mmol/L (98-107); Cholesterol 206 mg/dL (200); Creatinine, Serum 1.31 mg/dL (0.70-1.30); EST Glomerular Filtration Rate 63 mL/min (>60); Est Glom Filt Rate - Afr Amer 77 mL/min (>60); Globulin 3.8 g/dL (2.2-4.2); Glucose 95 mg/dL (74-106); High Density Lipoprotein 36 mg/dL; PSA,Total - Annual Screen 4.02 ng/mL (0.00-4.00); Potassium 3.9 mmol/L (3.5-5.1); Protein, Total 7.9 g/dL (6.4-8.2); Sodium Level 141 mmol/L (136-145); Thyroid Stim Hormone (TSH) 1.09 uIU/mL (0.358-3.74); Triglycerides 184 mg/dL; Very Low Density Lipoprotein 37 mg/dL (5-40)
[2023-08-08 16:57] LABS: Hemoglobin A1c 6.2 % (3.8-5.6)
== END | disposition home or self-care (01) ==
PROVIDERS: Referring Provider Nurse Practitioner Family; Visit Provider Nurse Practitioner Family
DX: E66.9 Obesity, unspecified (principal); I10 Essential (primary) hypertension; M25.571 Pain in right ankle and joints of right foot; Z12.5 Encounter for screening for malignant neoplasm of prostate
CPT/HCPCS: 36415; 73610; 80053; 80061; 83036; 84153; 84443; 85025; G0103

== ENCOUNTER → 2023-08-19 | Outpatient (CLI) | payer MEDICAID, SELFPAY ==
--- NOTE | 2023-08-19 14:10 | EKG12_ITS ---
Test Reason : HYPERTENSION Blood Pressure : / mmHG Vent. Rate : 102 BPM Atrial Rate : 102 BPM P-R Int : 146 ms QRS Dur : 082 ms QT Int : 340 ms P-R-T Axes : 044 062 -22 degrees QTc Int : 443 ms Sinus tachycardia T wave abnormality, consider inferior ischemia Abnormal ECG Confirmed by DIANA MELCHOR, EYAL ([id number]), graphic editor MICAELA MAC ([id number]) on 08/20/2023 9:01:06 AM Referred By: Romana Cruz Confirmed By:EYAL ORTIZ MD
--- OUTSIDE RECORDS SUMMARY | 2023-08-19 19:25 | XMS RPT_ITS | CCD ---
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) Unavailable Unavailabl e PHYSICIAN, NONE Primary Care Physician Unavailab lidia RODRIGUEZ MD, COY Ivan Attending Unavailable PHYSICIAN, NONE Primary Care Unavailable Allergies Allergy Classification Reported Allergen(s) Allergy Type Date of Onset Reaction(s) Facility (1 source) lisinopril; Translations: [LISINOPRIL] Drug Allergy 4 [facility] Repository (1 source) omeprazole; Translations: [OMEPRAZOLE] Drug Allergy 4 [facility] Repository (1 source) OTHER; Translations: [OTHER] Propensity to adverse reactions (disorder) 9 [facility] Repository Medications Current Medications Medication Drug Class(es) Dates Sig (Normalized) Sig (Original) acetaminophen 325 mg / HYDROcodone bitartrate 5 mg oral tablet (1 source) Opioid Agonist Start: 09-12-2013 take 1 tablet by mouth every six hours [place] 325- 5 mg oral tablet Dose = [...] Pressure Non-Invasive 89 1 COY RODRIGUEZ MD [facility] 04-02-2023 11:48-0400 Heart rate 83 /min COY RODRIGUEZ MD [facility] 04-02-2023 11:48-0400 Respiratory rate 18 /min COY RODRIGUEZ MD [facility] 04-02-2023 11:48-0400 Systolic Blood Pressure Non-Invasive 138 1 COY RODRIGUEZ MD [facility] 04-02-2023 10:54-0400 Body temperature 98.6 [degF] COY RODRIGUEZ MD [facility] 04-02-2023 10:54-0400 Body weight 102.3 kg COY RODRIGUEZ MD [facility] 04-02-2023 10:54-0400 Diastolic Blood Pressure Non-Invasive 92 1 COY RODRIGUEZ MD [facility] 04-02-2023 10:54-0400 Heart rate 95 /min COY RODRIGUEZ MD [facility] 04-02-2023 10:54-0400 Respiratory rate 18 /min COY RODRIGUEZ MD [facility] 04-02-2023 10:54-0400 Systolic Blood Pressure Non-Invasive 141 1 COY RODRIGUEZ MD [facility] Encounters Encounter Date Encounter Type Care Provider Facility Start: 04-02-2023 End: 04-02-2023 Emergency department patient visit COY RODRIGUEZ MD Facility:B Start: 04-02-2023 End: 04-02-2023 Emergency department patient visit COY RODRIGUEZ MD [facility] Start: 11-09-2017 End: 11-09-2017 Ambulatory TANMAY ([facility] Procedures Date Procedure Procedure Detail Performing Clinician Sinus (morphologic abnormality) COY RODRIGUEZ MD Payers Date Payer Category Payer Self-pay 1980 Unknown [id number] Social History Date Type Detail Facility Tobacco smoking status Occasiona l tobacco smoker (finding) [facility] Sex Assigned At Sex [facility] Functional Status Date Assessment Result Facility 04-02-2023 Functional Status Standard Safet y ID band on, Call device within reach, Bed in low position, Wheels locked, Upper/Half-Length side-rails up, Bedside Cart Locked, Safety level maintained [facility] Mental Status Date Assessment Result Facility 04-02-2023 Mental Status Orientation Oriented x [facility] Clinical Notes 09-08-2020 to 04-02-2023 Note Date [...] medicines you take. This includes prescription and qnee-gje-fmhtzfl medicines, vitamins, and herbs. Ask if any [...] Open wound with redness, swelling, or pus [phone] [employer]. [address] [place] [address]. All rights reserved. This information is not [...] action. To control pain, take prescription or pwwe-aif-bcfixne medicines as directed. Unless told not to, [...] Severe headache, neck pain, drowsiness, or confusion [phone] [employer] [place] [address], [place] [address]. All rights reserved. This information is not intended as a substitute for professional medical care. Always follow your healthcare professional's instructions. Follow Up Care 04/02/2023 10:41:16 With:DAVE TELLEZ DO Address: [address] [place] [phone]- [phone] When:2-4 days Comments:Make an appointment in 2 to 4 days with your physician. Return if you are worse in any way. [facility] 04-02-2023 Emergency department Discharge summary Discharge Instructions Thank you for allowing [facility] to assist you with your healthcare needs. [...] you are worse in any way. Where: [address] [place] [phone] Allergies No Known Medication Allergies Medications Please [...] Duration: 5 Days Printed Prescription Unchanged acetaminophen-HYDROcodone ([place] 325- 5 mg oral tablet) 1 tab(s) [...] medicines you take. This includes prescription and apge-mpb-amryjxm medicines, vitamins, and herbs. Ask if any [...] wound with redness, swelling, or pus [employer]. [address] [place] [address]. All rights reserved. This information is not [...] action. To control pain, take prescription or xusf-mej-uzpnoks medicines as directed. Unless told not to, [...] headache, neck pain, drowsiness, or confusion [employer]. [address] [place] [address]. All rights reserved. This information is not intended as a substitute for professional medical care. Always follow your healthcare professional's instructions. Additional Information VACCINATE! IT SAVES LIVES! Members of the community who have not yet received the COVID-19 vaccine and would like to receive it can visit one of [facility] vaccine clinics. There are many vaccine clinic locations within the [facility]. For locations and available times, please visit www.[email or web address].[place]. gov/. It is important to note that some COVID mobile vaccine clinics are held outdoors and may be canceled in rainy or stormy conditions. To learn more about pediatric vaccinations (ages 5-11), we invite you to visit the [facility] webpage. https://www.[facility].org/p ages/4759-Ksqmf-Zdeblcistkd-Freq ljfnzy-Kftsj-Kudmsmukv.html To learn more about the COVID-19 vaccine, we invite you to visit the CDC website for a list of frequently asked questions. https://www.cdc.gov/coronavirus/ 2019-ncov/vaccines/faq.html [facility] Patient Portal Access Instructions: Stay connected with your healthcare team and access your personal medical information anytime with the [facility] Patient Portal. If you would like a full copy of your medical records please contact the [facility] Medical Records Department Friday through Friday between 8a.m. and 4:30p.m. Please follow the directions below to access the portal: 1.Access the email account you provided upon registration to the hospital.2.Look for an invitation email from [facility].3.Open the email and access the invitation link: Accept Invitation to [facility]4.Fill in the required carrasco to create your account. Sign into www.[email or web address] with your username and password that you [...] you will allow to register on the [facility] Patient Portal for access to your information. You can also access the [facility] Patient Portal on the [employer]. Simply click on Health Records under Health Data and then click on the [employer] logo. HOW TO SAFELY DISPOSE OF PRESCRIPTION [...] Call your local pharmacy or go to http://Red's All natural.Cyrba/5O3Du3s to find one close to you.3.Make use of household items: Use cat litter or old coffee grounds to dispose medications if other options are not available. Mix your drugs with these household products, seal them in an airtight container and throw it into the garbage. Call [facility]: [phone] to be sure your drugs can be [...] aware that I should contact my doctor. 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 The pulmonary vasculature is unremarkable in appearance. IMPRESSION: Clear lungs. Interpreted by: Brian Lundberg MD Preliminary Report By: Brian Lundberg MD Electronically signed By Brian Lundberg MD Dictated Date: 04/02/2023 12:25:31 PM Prelim Date: 04/02/2023 12:25:53 PM Sign Date: 04/02/2023 12:25:53 PM Ordering Provider: COY RODRIGUEZ [facility] 04-02-2023 Note Sinus rhythm Probable left atrial enlargement Electronic Signature: COY RODRIGUEZ MD 04/02/2023 11:07:03 [facility] 12-08-2020 Note HNO ID: [id number] Author: Fatuma Pedraza LPN Service: ? Author [...] future healthcare decisions with a power of civil rights attorney, living will, or advance directives? Yes. Have you shared those records with your doctor? No Referrals: N/A Message Sent to Practice: yes Navigation Signature: Fatuma Pedraza LPN December 08, 2020 3:22 PM [facility] 12-08-2020 Note Patient Outreach (ESTHER MPWS) SARAI CHOE JR ([id number]) 1980 M Date Time Provider Department 12/08/20 [...] future healthcare decisions with a power of civil rights attorney, living will, or advance directives? Yes. [...] Upset Date Reviewed: 02/26/2018 Reviewed by: Mirta ([facility]) Candelario - Fully Assessed Reason for Visit: [...] rou* FLUTICASONE PROPIONATE 50 MCG* Use 1 [place] in each nostril o* CPAP Initiate CPAP [...] Encounter Status:Closed by FATUMA PEDRAZA on 12/08/20 [facility] 11-14-2020 Note Patient Outreach (FA MPWS) SARAI CHOE JR ([id number]) 1980 M Date Time Provider Department 11/14/20 JOSE L HAM MA During your visit today, we recorded the following information about you: Jose L Jitendra Alfredo 11/14/2020 11:16 AM Signed [...] future healthcare decisions with a power of civil rights attorney, living will, or advance directives? No. Please bring a copy to your next appointment or email to [email or web address] Referrals: N/A Message Sent to Practice: NO Navigation Signature: Jose L Ham Ma November 14, 2020 11:13 AM Allergies As of Date: 11/14/2020 Noted Allergy Reaction environmental [Other] 10/31/2008 Comments: Seasonal allergies LISINOPRIL 02/17/2014 14 - Other: See Comments Comments: Throat swelling OMEPRAZOLE 03/17/2014 8 - GI Upset Date Reviewed: 02/26/2018 Reviewed by: Mirta ([facility]) Candelario - Fully Assessed Reason for Visit: [...] rou* FLUTICASONE PROPIONATE 50 MCG* Use 1 [place] in each nostril o* CPAP Initiate CPAP [...] by JOSE L HAM MA on 11/14/20 [facility] 11-14-2020 Note HNO ID: [id number] Author: Jose L Ham Ma Service: ? [...] future healthcare decisions with a power of civil rights attorney, living will, or advance directives? No. Please bring a copy to your next appointment or email to Referrals: N/A Message Sent to Practice: NO Navigation Signature: Jose L Ham Ma November 14, 2020 11:13 AM [facility] 09-08-2020 Note HNO ID: [id number] Author: Svetlana Landa MA Service: ? Author Type: Spooler Type: Progress Notes Filed: 09/08/2020 5:29 PM Note Text: Care Gap Reviewed: Follow-up appointment Phone call placed to patient. Pt identified by name and : YES Outreach Outcome/Action: Spoke to patient or caregiver: Patient scheduled in Primary Care If patient deferred or declined to schedule appointment, please indicate the reason(s): Other Svetlana Landa [facility] 09-08-2020 Note Patient Outreach (FA MPWS) SARAI CHOE JR ([id number]) 1980 M Date Time Provider Department 09/08/20 [...] rou* FLUTICASONE PROPIONATE 50 MCG* Use 1 [place] in each nostril o* CPAP Initiate CPAP [...] Status:Closed by SVETLANA LANDA MA on 09/08/20 [facility] Evaluation + Plan note No data available for this section [facility] Summary Purpose Family History No Family History [...] DATE CREATED AUTHOR AUTHOR'S ORGANIZ ATION 07/29/2021 [facility] DATE CREATED AUTHOR AUTHOR'S ORGANIZ ATION 04/13/2023 [facility] ([place]) Patient Care team informatio n (unrecognized section and content) Care Team Personnel Name: PHYSICIAN, NONE Position: Physician Member Role: Primary Care Physician Name: KERWIN Horvath Position: ED RN Member Role: ED RN Name: COY RODRIGUEZ MD Position: ED Physician Member Role: ED Physician Address: Address: [facility] [address] [place] [address]- Care Team Related Persons Name: EVON ADAMS [...] BE BASED ON THE PRIMARY CLINICAL RECORDS. [email or web address]. provides no warranty or guarantee of the accuracy or completeness of information in this document.
== END | disposition home or self-care (01) ==
PROVIDERS: Referring Provider Nurse Practitioner Family; Visit Provider Nurse Practitioner Family
DX: I10 Essential (primary) hypertension (principal); R07.9 Chest pain, unspecified; G47.33 Obstructive sleep apnea (adult) (pediatric)
CPT/HCPCS: 93005

== ENCOUNTER → 2023-10-03 | Outpatient (CLI) | payer MEDICAID, SELFPAY | END | disposition home or self-care (01) | LOC: SL 19:39 | PROVIDERS: Referring Provider Nurse Practitioner Family; Visit Provider Nurse Practitioner Family | DX: G47.33 Obstructive sleep apnea (adult) (pediatric) (principal); R07.9 Chest pain, unspecified | CPT/HCPCS: 95810 ==

== ENCOUNTER → 2023-11-06 | Outpatient (CLI) | payer MEDICAID, SELFPAY | END | disposition home or self-care (01) | LOC: SL 19:49 | PROVIDERS: Visit Provider Nurse Practitioner Family | DX: G47.33 Obstructive sleep apnea (adult) (pediatric) (principal) | CPT/HCPCS: 95811 ==

== ENCOUNTER → 2024-01-07 | Outpatient (CLI) | payer OTHER, SELFPAY | END | disposition home or self-care (01) | LOC: SL 08:55 | PROVIDERS: Visit Provider Nurse Practitioner Family | DX: Z00.00 Encounter for general adult medical examination without abnormal findings (principal) ==

== ENCOUNTER 2024-11-24 08:24 | Emergency (ER) | payer OTHER, SELFPAY ==
[2024-11-24 08:26] VITALS: BP 187/96; PULSE 89; RESP 16; TEMP 36.9; O2SAT 100; BMI 41.8
--- NOTE | 2024-11-24 09:08 | EX.ED.DYSGE1 ---
HPI History of Present Illness Chief Complaint: Sore Throat Narrative Narrative: 44-year-old male with past medical history of hypertension presents with sore throat that has had for the last 4 days. States he does not have any fever or chills. No nausea or vomiting. Pain is worse with swallowing. Complains of right sided throat pain greater than the left. States he had strep throat a few years ago. No other exacerbating or alleviating factors. PFSH PFS Medical History Hypertension GERD (gastroesophageal reflux disease) CPAP (continuous positive airway pressure) dependence Sleep apnea Home Medications ?Medication ?Instructions ?Recorded ?Last Taken ?Type amoxicillin 875 mg-potassium 1 tab PO Q12H #28 tabs 01/13/21 Unknown Rx clavulanate 125 mg tablet (Augmentin) hydrochlorothiazide 25 mg tablet 25 mg PO DAILY 01/13/21 Unknown History metoclopramide HCl 10 mg tablet 10 mg PO Q6H PRN PRN Headache or 01/20/21 Unknown Rx nausea #20 tabs amoxicillin 875 mg-potassium 1 tab PO BID 10 days #20 tabs 11/24/24 Unknown Rx clavulanate 125 mg tablet dexamethasone 4 mg tablet 8 mg (2 x 4 mg) PO DAILY #12 tabs 11/24/24 Unknown Rx Allergy/AdvReac Type Severity Reaction Status Date / Time No Known Allergies Allergy Verified 11/24/24 08:28 Social History Smoking Status: Never smoker ROS ROS ED ROS Narrative Review of systems positive for sore throat for 4 days. No fevers or chills, no nausea or vomiting. Pain worse with swallowing. Right sided pain somewhat worse than the left. No exacerbating or alleviating factors otherwise. EXAM Physical Exam Narrative Exam Narrative: Afebrile. Vital signs noted. Nontoxic-appearing. Cardiovascular examination reveals regular rate and rhythm. Lungs are clear to auscultation bilaterally. Abdomen is soft, nontender, with positive bowel sounds. No guarding or rebound. HEENT examination shows neck soft and supple without meningismus. Airway is patent. No drooling or trismus. Const Vital Signs: 11/24/24 08:26 11/24/24 10:50 Temperature 98.4 F 99.3 F H Temperature Source Oral Pulse Rate 89 87 Respiratory Rate 16 19 H Blood Pressure 187/96 H 127/89 H Blood Pressure Mean 126 101 Pulse Ox 100 97 Oxygen Delivery Method Room Air MDM MDM MDM Narrative Medical decision making narrative: Differential diagnosis includes but not limited to strep pharyngitis versus peritonsillar abscess. I have low concern for retropharyngeal abscess. His pulse ox is 100% on room air without evidence of hypoxia. Strep was obtained but he will be given Augmentin as well as Decadron here in the emergency department. He is handling his secretions currently. He was also administered Tylenol for analgesia. I reviewed his swab and he is negative for strep. At this point in time, he was started on a Decadron taper, as well as antibiotics and told to follow-up with the ENT in the next 1 to 2 days. I do not feel that he requires drainage currently. He is able to swallow his medications and his own secretions. Return instructions to the emergency department were reviewed. Disposition is discharged home in stable condition. History & Record Review Discussion w/independent historian: Patient Lab Data Attestation: I reviewed the patient's lab results. Discharge Plan Triage Chief Complaint: Sore Throat ED Provider: Ifeanyi Saucedo Dx/Rx/DC Orders Clinical Impression: Pharyngitis, Peritonsillar abscess Instructions: ED Peritonsillar Abscess Prescriptions: New amoxicillin-pot clavulanate 875-125 mg tablet 1 tab PO BID 10 Days Qty: 20 0RF dexamethasone 4 mg tablet 8 mg PO DAILY Qty: 12 0RF Rx Instructions: 8 mg by mouth daily for 3 days then 4 mg once daily by mouth for 3 days then half a tablet by mouth daily for 3 days. No Action hydrochlorothiazide 25 mg tablet 25 mg PO DAILY Patient Comments: TAKE 1 TABLET ONCE DAILY amoxicillin-pot clavulanate [Augmentin] 875-125 mg tablet 1 tab PO Q12H Qty: 28 0RF metoclopramide HCl [metoclopramide HCl] 10 MG tablet 10 mg PO Q6H PRN PRN (Reason: Headache or nausea) Qty: 20 0RF Primary Care Provider: [facility] Referrals: Cameron Hazel MD [Med Staff - Active Staff] - 1-2 [facility] - Activity Restrictions/Additional Instructions: Antibiotics and steroids as directed. Return to the emergency department with inability to swallow your own saliva, difficulty breathing, fever, new or worsening symptoms. Print Language: Slovak Disposition Disposition: Home, Self Care Discharge Date/Time: 11/24/24 10:58
[2024-11-24] MEDS: dexAMETHasone 4 MG Tablet 8 MG PO (09:45)
[2024-11-24] MEDS: Amox/Clavulanate 875 MG Tablet PO (09:45)
[2024-11-24 10:50] VITALS: BP 127/89; PULSE 87; RESP 19; TEMP 37.4; O2SAT 97
[2024-11-24] MEDS: Acetaminophen 500 MG Tablet 1000 MG PO (10:57)
== END 2024-11-24 10:58 | disposition home or self-care (01) ==
PROVIDERS: Emergency Provider Emergency Medicine; Visit Provider Emergency Medicine
DX: J36 Peritonsillar abscess (principal); I10 Essential (primary) hypertension; G47.30 Sleep apnea, unspecified; Z79.899 Other long term (current) drug therapy
CPT/HCPCS: 87651; 99283

== ENCOUNTER 2025-01-07 11:54 | Emergency (ER) | payer OTHER, SELFPAY ==
[2025-01-07 11:54] VITALS: BP 170/100; PULSE 100; RESP 20; TEMP 37.2; O2SAT 97; BMI 40.9
[2025-01-07 11:56] VITALS: BP 170/100; PULSE 100; RESP 18; TEMP 37.2; O2SAT 99
--- NOTE | 2025-01-07 12:09 | EX.ED.DYSGE1 ---
HPI <DAJA Fong - Last Filed: 01/07/25 15:19> History of Present Illness Chief Complaint: General Illness Narrative Narrative: 44 old male with past medical history hypertension presents with a blistering rash. He states 3 weeks ago he hit his right leg on the laundromat door causing a wound to the back of the calf. He thought it was not healing well so he went to urgent care 4 days ago (on January 03) and was given a tetanus shot and prescribed Bactrim. PFSH <DAJA Fong - Last Filed: 01/07/25 15:19> [facility] Medical History (Updated 01/07/25 @ 13:52 by DAJA Fong) Hypertension GERD (gastroesophageal reflux disease) CPAP (continuous positive airway pressure) dependence Sleep apnea Home Medications ?Medication ?Instructions ?Recorded ?Last Taken ?Type hydrochlorothiazide 25 mg tablet 25 mg PO DAILY 01/13/21 Unknown History Allergy/AdvReac Type Severity Reaction Status Date / Time No Known Allergies Allergy Verified 01/07/25 11:54 Surgical History (Updated 01/07/25 @ 12:07 by Daisy Capellan) History of nasal surgery Social History Smoking Status: Never smoker ROS <DAJA Fong - Last Filed: 01/07/25 15:19> ROS ED ROS Narrative Constitutional: Negative for fever, chills, malaise. CVS: Negative for chest pain. Respiratory: Negative for shortness of breath. GI: Negative for abdominal pain, nausea, vomiting. EXAM <DAJA Fong - Last Filed: 01/07/25 15:19> Physical Exam Narrative Exam Narrative: CONST: Patient sitting in no acute distress. EYES: Normal inspection. ENT: Normal inspection, moist mucous membranes. No mucosal lesions. NECK: Normal inspection. RESP: No respiratory distress, CTAB. CVS: Regular rate and rhythm, no murmur, no gallop. SKIN: Vertical linear wound with yellow granulation tissue right posterior ankle. No drainage, no fluctuance or crepitus, no surrounding erythema or lymphangitic streaking. There are scattered blisters on both upper and lower extremities especially the forearms and calves. A few that have already be removed on their own leave a superficial red wound on the skin. There are no hemorrhagic lesions, no purpura petechiae. No crepitus or fluctuance. EXTREMITIES: Normal appearance, no pedal edema. NEURO: Alert and answering questions appropriately. PSYCH: Normal affect. Const Vital Signs: 01/07/25 11:54 01/07/25 11:56 01/07/25 12:06 Temperature 99 F 99 F Temperature Source Temporal Oral Pulse Rate 100 100 Respiratory Rate 20 H 18 Respiratory Effort Normal Respiratory Pattern Normal Blood Pressure 170/100 H 170/100 H Blood Pressure Mean 123 123 Pulse Ox 97 99 Oxygen Delivery Method Room Air Room Air 01/07/25 12:56 01/07/25 13:22 01/07/25 14:11 Temperature 99.2 F H 98.1 F 98.3 F Temperature Source Oral Oral Pulse Rate 101 H 85 87 Respiratory Rate 18 16 16 Respiratory Effort Respiratory Pattern Blood Pressure 172/99 H 184/94 H 170/102 H Blood Pressure Mean 123 124 124 Pulse Ox 99 98 99 Oxygen Delivery Method Room Air <Dr. Rehan Baker DO - Last Filed: 01/07/25 14:25> Physical Exam Const Vital Signs: 01/07/25 11:54 01/07/25 11:56 01/07/25 12:06 Temperature 99 F 99 F Temperature Source Temporal Oral Pulse Rate 100 100 Respiratory Rate 20 H 18 Respiratory Effort Normal Respiratory Pattern Normal Blood Pressure 170/100 H 170/100 H Blood Pressure Mean 123 123 Pulse Ox 97 99 Oxygen Delivery Method Room Air Room Air 01/07/25 12:56 01/07/25 13:22 01/07/25 14:11 Temperature 99.2 F H 98.1 F 98.3 F Temperature Source Oral Oral Pulse Rate 101 H 85 87 Respiratory Rate 18 16 16 Respiratory Effort Respiratory Pattern Blood Pressure 172/99 H 184/94 H 170/102 H Blood Pressure Mean 123 124 124 Pulse Ox 99 98 99 Oxygen Delivery Method Room Air MDM <DAJA Fong - Last Filed: 01/07/25 15:19> [facility] MDM Narrative Medical decision making narrative: Patient presents with a blistering rash. He cut his right leg and has been taking Bactrim since 01/03/2025. He thinks the blistering started after this. He otherwise feels well and has not had any fevers or systemic symptoms. His vital signs are normal. He has a red blistering rash on both periorbital areas worse on his right upper eyelid causing swelling. The globes themselves are normal and he has no drainage or ocular changes. It is on his extremities. There is a very small amount on his abdomen but otherwise his thorax is mostly clear. The wound on his right posterior ankle does not look infected and his extremities are neurovascularly intact. Since the rash is widespread I checked basic labs. CBC is normal. Creatinine is 1.32 which is similar to last year. Glucose is 168. Patient was not aware that his kidney function has been elevated in the past so I recommended he follow-up with the [facility] which is his PCP. Regarding his rash, I recommended he stop Bactrim in case this is an allergic reaction. The wound on his leg does not appear infected either and I do not think he requires antibiotics. He does not have mucosal lesions or skin sloughing or systemic symptoms I do not think this is TENS/SJS. His right leg wound was and dressed with bacitracin and a bandage. He states he has a dermatology appointment scheduled on January 11. Until then I recommended wound care, monitoring, and discussed return precautions. He was discharged in stable condition. Lab Data Labs: Laboratory Results - last 24 hr 01/07/25 13:00 WBC 9.4 RBC 5.68 Hgb 15.5 Hct 47.5 MCV 83.6 MCH 27.3 MCHC 32.6 RDW Std Deviation 45.3 H RDW Coeff of Silvina 14.9 H Plt Count 266 MPV 10.4 Immature Gran % (Auto) 0.400 Neut % (Auto) 53.1 Lymph % (Auto) 26.1 Jewell % (Auto) 7.3 Eos % (Auto) 12.9 H Baso % (Auto) 0.2 Absolute Neuts (auto) 5.0 Absolute Lymphs (auto) 2.45 Nucleated RBC % 0 Sodium 135 Potassium 4.0 Chloride 103 Carbon Dioxide 22.9 Anion Gap 9 BUN 16 Creatinine 1.32 H Estim Creat Clear Calc 89.88 Est GFR (MDRD) Non-Af 68 BUN/Creatinine Ratio 12.4 Glucose 168 H Calcium 8.7 <Dr. Rehan Baker, DO - Last Filed: 01/07/25 14:25> [facility] Lab Data Labs: Laboratory Results - last 24 hr 01/07/25 13:00 WBC 9.4 RBC 5.68 Hgb 15.5 Hct 47.5 MCV 83.6 MCH 27.3 MCHC 32.6 RDW Std Deviation 45.3 H RDW Coeff of Silvina 14.9 H Plt Count 266 MPV 10.4 Immature Gran % (Auto) 0.400 Neut % (Auto) 53.1 Lymph % (Auto) 26.1 Jewell % (Auto) 7.3 Eos % (Auto) 12.9 H Baso % (Auto) 0.2 Absolute Neuts (auto) 5.0 Absolute Lymphs (auto) 2.45 Nucleated RBC % 0 Sodium 135 Potassium 4.0 Chloride 103 Carbon Dioxide 22.9 Anion Gap 9 BUN 16 Creatinine 1.32 H Estim Creat Clear Calc 89.88 Est GFR (MDRD) Non-Af 68 BUN/Creatinine Ratio 12.4 Glucose 168 H Calcium 8.7 Treatment and Re-Evaluation :: I have personally performed a face to face assessment of the patient and have reviewed the ROXANA Note. I performed a substantive portion of the visit including all aspects of the following. My armstrong findings include: History: Patient presents with rash that has been getting worse for the past 3 to 4 weeks. Patient states that he cut his right leg and was seen in urgent care. Patient was prescribed Bactrim on 01/03/2025. Patient states he has been taking this and shortly after he started taking this, the blisters on his legs started. Patient states it is now spread to his right forearm, abdomen, and bilateral periorbital areas. Patient states he was applying a cream to his right lower leg which seemed to be helping. Patient denies any discharge or drainage. Patient denies any fevers or chills. Patient denies any difficulty breathing or difficulty swallowing. Exam: Vital signs are stable except for an elevated blood pressure of 172/99. Patient is in no acute distress. Pupils are equal, round, and reactive to light bilaterally. Extraocular muscles are intact. Conjunctiva was injected bilaterally. There is edema over the bilateral periorbital areas, worse on the right. There are some excoriations and vesicles noted over the periorbital areas bilaterally. There is no active discharge or drainage. There is also vesicles noted of the volar aspect of the right forearm, anterior upper abdomen, and bilateral lower extremities. There is some mild crusting. There is no active drainage. Sensation is intact to light touch in all digits. Capillary refill was less than 2 seconds in all digits. Medical Decision Making: Differential diagnosis includes bullous impetigo, allergic reaction, medication side effect, and dermatitis. CBC will be obtained to assess for leukocytosis and anemia. Basic metabolic profile will be obtained to assess for electrolyte abnormality and renal function. Wound cultures will be obtained to assess for wound infection. CBC was reviewed and was within normal limits. Basic metabolic profile was reviewed. Creatinine was slightly elevated 1.32. There are no prior labs available for comparison. Glucose was mildly elevated at 168. Patient was advised of his findings. Patient was instructed to stop taking the Bactrim. Patient was instructed to keep the wound clean and dry. Patient was instructed to follow-up with his primary care physician in 5 to 7 days. Patient also states he has an appoint with a maintenance representative next week. Patient was instructed to keep this appointment. Patient was instructed to return if worse in any way. Patient understood and was agreeable with the plan. All questions were answered. Discharge Plan Triage Chief Complaint: General Illness ED Midlevel Provider: Katerine Lobato ED Provider: Rehan Baker Dx/Rx/DC Orders Clinical Impression: Blistering rash, Leg wound, right Instructions: Nonspecific Skin Rash Prescriptions: No Action hydrochlorothiazide 25 mg tablet 25 mg PO DAILY Patient Comments: TAKE 1 TABLET ONCE DAILY [facility] - Activity Restrictions/Additional Instructions: I am not sure what is causing your blistering rash. I recommend you stop taking the Bactrim. The wound on your leg does not look infected. Clean it with soap and water twice daily and cover with bacitracin and a bandage. I recommend you see a maintenance representative as soon as possible. If you feel your rash is worsening or you develop any fever or feel sick or have significantly worsening rash come back to the ER. Print Language: Guatemalan Disposition Disposition: Home, Self Care Discharge Date/Time: 01/07/25 14:13
[2025-01-07 12:56] VITALS: BP 172/99; PULSE 101; RESP 18; TEMP 37.3; O2SAT 99
[2025-01-07 13:13] LABS: Hematocrit 47.5 % (40-54); Hemoglobin 15.5 g/dL (13.0-16.5); Immature Granulocytes Count 0.040 X10^3/uL (0.0-0.0); Mean Corp Hgb Conc 32.6 g/dL (32-36); Mean Corpuscular Volume 83.6 fL (80-94); Mean Platelet Vol. 10.4 fl (6.2-12.0); NRBC Flagged by Analyzer 0 % (0-5); Platelet Count 266 K/mm3 (150-450); RBC Distribution Width CV 14.9 % (11.6-14.6); RBC Distribution Width SD 45.3 fl (35.1-43.9); Red Blood Count 5.68 M/mm3 (4.6-6.2); White Blood Count 9.4 K/mm3 (4.4-11.0)
[2025-01-07 13:22] VITALS: BP 184/94; PULSE 85; RESP 16; TEMP 36.7; O2SAT 98
[2025-01-07 13:40] LABS: BUN 16 mg/dL (4-19); BUN/Creat Ratio 12.4 RATIO (10-20); Calcium,Total 8.7 mg/dL (7.6-11.0); Estimated Creatinine Clearance 89.88 ml/min (50-250); Glucose 168 mg/dL (70-99)
[2025-01-07 13:41] LABS: Anion Gap 9 (5-15); Carbon Dioxide 22.9 mmol/L (21.0-32.0); Chloride 103 mmol/L (98-108); Potassium 4.0 mmol/L (3.3-5.1)
[2025-01-07 14:11] VITALS: BP 170/102; PULSE 87; RESP 16; TEMP 36.8; O2SAT 99
== END 2025-01-07 14:13 | disposition home or self-care (01) ==
PROVIDERS: Physician Assistant; Emergency Provider Emergency Medicine; Referring Provider Emergency Medicine; Visit Provider Emergency Medicine
DX: S91.001A Unspecified open wound, right ankle, initial encounter (principal); W22.09XA Striking against other stationary object, initial encounter; S80.821A Blister (nonthermal), right lower leg, initial encounter; S80.822A Blister (nonthermal), left lower leg, initial encounter; S50.821A Blister (nonthermal) of right forearm, initial encounter; S50.822A Blister (nonthermal) of left forearm, initial encounter; S00.221A Blister (nonthermal) of right eyelid and periocular area, initial encounter; S30.821A Blister (nonthermal) of abdominal wall, initial encounter; S00.222A Blister (nonthermal) of left eyelid and periocular area, initial encounter; R21 Rash and other nonspecific skin eruption; I10 Essential (primary) hypertension; Z79.899 Other long term (current) drug therapy
CPT/HCPCS: 80048; 85025; 87070; 87186; 87205; 99283; A4216